=== PATIENT | female | born 2000 | race Native Hawaiian/Other Pacific Islander ===

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

== ENCOUNTER 2019-05-25 17:05 | Outpatient (CLI) | payer OTHER ==
[2019-05-25 18:18] LABS: Bilirubin,Urine NEG (Negative); Blood,Urine MOD (Negative); Calcium Oxalate Crystals,Urine 2+; Color,Urine Amber (Yellow)
[2019-05-25 18:26] LABS: Hematocrit 33.6 % (30.3-42.9); Hemoglobin 11.7 gm/dl (10.1-14.3); Mean Corpuscular HGB Conc 35 % (30-34); Mean Corpuscular Volume 84 fl (79-97); Platelet Count 217 K/mm3 (140-440); Red Blood Count 4.01 M/mm3 (3.65-5.03)
[2019-05-25 18:58] LABS: Alanine Aminotransferase 12 units/L (7-56); Uric Acid 5.8 mg/dL (3.5-7.6)
[2019-05-25 22:03] VITALS: BP 128/79
== END 2019-05-25 22:40 | disposition home or self-care (01) ==
LOC: TRG 17:05
PROVIDERS: ATTEND Obstetrics & Gynecology
DX: O47.1 False labor at or after 37 completed weeks of gestation (principal); Z3A.38 38 weeks gestation of pregnancy
CPT/HCPCS: 36415; 81001; 82565; 83615; 84450; 84460; 84550; 85027; 87086

== ENCOUNTER 2019-05-28 18:46 | Observation (INO) | payer OTHER ==
[2019-05-28] MEDS ORDERED: SUBLIMAZE IV PRN (20:53)
[2019-05-28] MEDS ORDERED: AMPICILLIN/NS 2 GM/100 ML 2 GM/100 ML BAG IV ONE (20:53)
[2019-05-28] MEDS ORDERED: STADOL IV PRN (20:53)
[2019-05-28] MEDS ORDERED: MINERAL OIL PO PRN (20:53)
[2019-05-28] MEDS ORDERED: BRETHINE SUB-Q PRN (20:53)
[2019-05-28] MEDS ORDERED: BRETHINE IVP PRN (20:53)
[2019-05-28] MEDS ORDERED: XYLOCAINE 2% INFILTRATI ONE (20:53)
[2019-05-28] MEDS ORDERED: ZOFRAN IV PRN (20:53)
[2019-05-28] MEDS ORDERED: PITOCin/NS 20 UNIT/1000ML DRIP 20 UNITS/1,000 ML BAG IV SCH (21:00)
[2019-05-28] MEDS ORDERED: PITOCin/NS 30 UNIT/500ML 30 UNITS/500 ML BAG IV SCH ×2 (21:00)
[2019-05-28] MEDS ORDERED: LACTATED RINGERS 1,000 ML IV SCH (21:00)
[2019-05-28 22:55] LABS: Alanine Aminotransferase 10 units/L (7-56)
[2019-05-28 23:10] LABS: Hematocrit 33.8 % (30.3-42.9); Hemoglobin 11.6 gm/dl (10.1-14.3); Mean Corpuscular HGB Conc 34 % (30-34); Mean Corpuscular Volume 84 fl (79-97); Platelet Count 220 K/mm3 (140-440); Red Blood Count 4.02 M/mm3 (3.65-5.03); Red Cell Distribution Width 14.7 % (13.2-15.2)
[2019-05-28 23:25] LABS: Bilirubin,Urine NEG (Negative); Blood,Urine NEG (Negative); Color,Urine Yellow (Yellow); Protein,Urine <15 mg/dL mg/dL (Negative); Urobilinogen,Urine < 2.0 mg/dL (<2.0)
[2019-05-29 02:15] LABS: Uric Acid 5.6 mg/dL (3.5-7.6)
[2019-05-29] MEDS ORDERED: XYLOCAINE 2% INFILTRATI ONE (07:11)
[2019-05-29] MEDS ORDERED: METHERGINE IM ONE ×2 (07:13→11:29)
--- NOTE | 2019-05-29 07:37 | History and Physical Report ---
History of Present Illness Date of examination: 05/29/19 Date of admission: 05/28/19 21:14 Chief complaint: SROM 3 days ago History of present illness: Pt is a 18yo HF EDC 06/01/19; EGA 39 4/7 weeks presented to L&D complaining of SROM 3 days ago, now with irregular contractions. She received care at [facility] since 6 weeks and course has been unremarkable. records are available and GBS is Negative. Past History Past Medical History: no pertinent history Past Surgical History: no surgical history Family/Genetic History: diabetes, heart disease Social history: no significant social history, single - Obstetrical History Expected Date of Delivery: 06/01/19 Actual Gestation: 39 Week(s) 4 Day(s) : 1 Medications and Allergies Allergies Allergy/AdvReac Type Severity Reaction Status Date / Time No Known Allergies Allergy Verified 12/28/18 01:52 Active Meds: Active Medications Butorphanol Tartrate (Stadol) 2 mg IV Q2H PRN PRN Reason: Pain , Severe (7-10) Last Admin: 05/29/19 03:53 Dose: 2 mg Documented by: Ephedrine Sulfate (Ephedrine Sulfate) 10 mg IV Q2M PRN PRN Reason: Hypotension Fentanyl (Sublimaze) 100 mcg IV Q2H PRN PRN Reason: Labor Pain Oxytocin/Sodium Chloride (Pitocin/Ns 20 Unit/1000ml Drip) 20 units in 1,000 mls @ 125 mls/hr IV DIRECT ABBY Oxytocin/Sodium Chloride (Pitocin/Ns 30 Unit/500ml) 30 units in 500 mls @ 1 mls/hr IV TITR ABBY; Protocol Last Admin: 05/28/19 22:00 Dose: 1 milliunits/min, 1 mls/hr Documented by: Oxytocin/Sodium Chloride (Pitocin/Ns 30 Unit/500ml) 30 units in 500 mls @ 2 mls/hr IV TITR ABBY; Protocol Lactated Ringer's (Lactated Ringers) 1,000 mls @ 125 mls/hr IV DIRECT ABBY Last Admin: 05/28/19 22:00 Dose: 125 mls/hr Documented by: Mineral Oil (Mineral Oil) 30 ml PO QHS PRN PRN Reason: Constipation Ondansetron HCl (Zofran) 4 mg IV Q8H PRN PRN Reason: Nausea And Vomiting Terbutaline Sulfate (Brethine) 0.25 mg SUB-Q ONCE PRN PRN Reason: Hyperstimulation/Hypertonicity Terbutaline Sulfate (Brethine) 0.25 mg IVP ONCE PRN PRN Reason: Hyperstimulation/Hypertonicity Review of Systems All systems: negative - Vital Signs Vital signs: Vital Signs Pulse BP 73 137/97 05/28/19 19:33 05/28/19 19:33 Temp Pulse Resp BP Pulse Ox 110 H 18 142/94 05/29/19 07:23 05/29/19 03:53 05/29/19 07:23 - Physical Exam Breasts: Positive: deferred Cardiovascular: Regular rate Lungs: Positive: Clear to auscultation Abdomen: Positive: normal appearance Genitourinary (Female): Positive: normal external genitalia Uterus: Positive: enlarged Extremities: Positive: normal - Obstetrical FHR: category 1 Uterine Contraction Monitor Mode: External Cervical Dilatation: 10 Cervical Effacement Percentage: 100 station: +2 Uterine Contraction Pattern: Regular Uterine Tone Measurement Phase: Contraction Uterine Contraction Intensity: Strong/Firm Results Result Diagrams: 05/28/19 20:30 05/28/19 21:57 Abnormal lab results 05/28/19 Range/Units 21:57 Creatinine 0.5 L (0.7-1.2) mg/dL All other labs normal. Assessment and Plan - Patient Problems (1) 39 weeks gestation of Onset Date: 05/29/19 Current Visit: Yes Status: Acute Plan to address problem: A: IUP @ 39 4/7 weeks in labor Prolonged ROM P: Admit to L&D for expectant vaginal delivery IV Ampicillin
--- NOTE | 2019-05-29 07:45 | Procedure Note ---
OB Delivery Note - Delivery Date of Delivery: 05/29/19 Surgeon: DAMI SANDOVAL Estimated blood loss: 300cc - Vaginal Delivery presentation: vertex Delivery position: OA Intrapartum events: PROM->1hr before delivery, meconium Delivery induction: none Delivery augmentation: rupture of membranes Delivery monitor: external FHT, external uterine Route of delivery: Delivery placenta: spontaneous Delivery cord: 3 umbilical vessels Episiotomy: none Delivery laceration: 1st degree (perineal lacerations) Delivery repair: vicryl Anesthesia: local Delivery comments: delivered OA and placed on Mom's chest for [id number] bonding and delayed cord clamping, cut by Dad - Infant A at 1 minute: 8 at 5 minutes: 9 Gender: Female (3128gms)
[2019-05-29] MEDS ORDERED: TUCKS PAD TP PRN (07:47)
[2019-05-29] MEDS ORDERED: PHENERGAN PO PRN (07:47)
[2019-05-29] MEDS ORDERED: LANSINOH TP PRN (07:47)
[2019-05-29] MEDS ORDERED: TYLENOL PO PRN (07:47)
[2019-05-29] MEDS ORDERED: NORCO 5/325 PO PRN (07:47)
[2019-05-29] MEDS ORDERED: ZOFRAN IV PRN (07:47)
[2019-05-29] MEDS ORDERED: BENADRYL PO PRN (07:47)
[2019-05-29] MEDS ORDERED: PHENERGAN PR PRN (07:47)
[2019-05-29] MEDS ORDERED: PITOCin/NS 20 UNIT/1000ML DRIP 20 UNITS/1,000 ML BAG IV SCH (08:00)
[2019-05-29] MEDS ORDERED: SODIUM CHLORIDE FLUSH SYRINGE 10 ML IV NR (08:00)
[2019-05-29] MEDS: IBUPROFEN PO SCH ×2 (09:20→20:25)
[2019-05-29] MEDS ORDERED: DULCOLAX PR PRN (10:00)
[2019-05-29 19:03] LABS: Hematocrit 27.6 % (30.3-42.9); Hemoglobin 9.5 gm/dl (10.1-14.3)
[2019-05-29] MEDS ORDERED: MILK OF MAGNESIA PO PRN (22:00)
[2019-05-29] MEDS: FEOSOL PO SCH (22:31)
[2019-05-29] MEDS: COLACE PO SCH (22:31)
[2019-05-30] MEDS: IBUPROFEN PO SCH ×5 (02:44→23:11)
[2019-05-30] MEDS ORDERED: BOOSTRIX IM ONE ×2 (06:00→12:15)
[2019-05-30] MEDS: PRENATAL VITAMIN PO SCH (09:50)
[2019-05-30] MEDS: FEOSOL PO SCH ×2 (09:50→23:10)
[2019-05-30] MEDS: COLACE PO SCH ×2 (09:50→23:10)
[2019-05-30] MEDS ORDERED: M-M-R II VACCINE SUB-Q ONE (10:00)
--- NOTE | 2019-05-30 12:34 | Progress Note ---
Assessment and Plan - Patient Problems (1) (normal spontaneous vaginal delivery) Current Visit: Yes Status: Acute Plan to address problem: Continue routine PP orders Anticipate d/c home tomorrow (2) Anemia Current Visit: Yes Status: Acute Qualifiers: Anemia type: other cause Other causes of anemia: acute posthemorrhagic Qualified Code(s): D62 - Acute posthemorrhagic anemia Plan to address problem: Asymptomatic Continue daily oral iron supplementation as ordered Subjective - Subjective Date of service: 05/30/19 Principal diagnosis: Interval history: See admission H & P and OB delivery summary Patient reports: appetite normal, voiding normally, pain well controlled, flatus, ambulating normally, no bowel movement [place]: doing well, bottle feeding (and ) Objective - Vital Signs Latest vital signs: Vital Signs Temp Pulse Resp BP Pulse Ox 05/30/19 09:41 98.2 F 89 16 135/86 97 05/30/19 00:37 98.1 F 81 20 133/82 93 Intake and Output 05/29/19 05/30/19 05/30/19 23:59 07:59 15:59 Intake Total 240 360 Output Total 650 250 Balance -410 110 Intake: Oral 240 120 Intake, Free Water 240 Output: Urine 650 250 Void 650 250 Other: Total, Intake Amount 240 120 Total, Output Amount 450 250 # Voids Void 1 1 - Exam Breasts: Present: deferred Cardiovascular: Present: Regular rate Lungs: Present: Normal air movement Abdomen: Present: soft, normal bowel sounds Uterus: Present: firm, fundal height below umbilicus (U-2) Extremities: Present: normal Deep Tendon Reflex Grade: Normal +2 Incision: Present: other (1st degree laceration, healing as expected) - Labs Labs: Abnormal lab results 05/29/19 Range/Units 18:00 Hgb 9.5 L (10.1-14.3) gm/dl Hct 27.6 L D (30.3-42.9) %
--- NOTE | 2019-05-30 12:39 | Discharge Summary ---
Providers - Providers Date of Admission: 05/28/19 21:14 Date of discharge: 05/31/19 (1200) Attending physician: SARAH ALMARAZ MD Primary care physician: SARAH ALMARAZ MD Hospitalization Reason for admission: active labor Delivery: Episiotomy: none Laceration: 1st degree (healing as expected) complications: none Discharge diagnosis: IUP at term delivered [place] baby: female Condition at discharge: Stable Disposition: [facility]-01 TO HOME OR SELFCARE - Discharge Diagnoses (1) (normal spontaneous vaginal delivery) Status: Acute (2) Anemia Status: Acute Qualifiers: Anemia type: other cause Other causes of anemia: acute posthemorrhagic Qualified Code(s): D62 - Acute posthemorrhagic anemia Plan - Provider Discharge Summary Activity: routine, no sex for 6 weeks, no heavy lifting 4 weeks, no strenuous exercise Diet: other (Increase iron rich foods) Instructions: routine Additional instructions: [] Smoking cessation referral if applicable(refer to patient education folder for contact #) [] Refer to [facility]'s [facility] Booklet Call your doctor immediately for: * Fever > 100.5 * Heavy vaginal bleeding ( >1 pad per hour) * Severe persistent headache * Shortness of breath * Reddened, hot, painful area to leg or breast * Drainage or odor from incision. * Keep incision clean and dry at all times and follow doctor's instructions regarding bathing/showering - Follow up plan Follow up: SARAH ALMARAZ MD [Primary Care Provider] - 6 Weeks
[2019-05-30] MEDS: NORMODYNE PO SCH ×2 (18:50→22:44)
[2019-05-30 20:38] LABS: Hematocrit 24.4 % (30.3-42.9); Hemoglobin 8.3 gm/dl (10.1-14.3); Mean Corpuscular HGB Conc 34 % (30-34); Mean Corpuscular Volume 85 fl (79-97); Platelet Count 180 K/mm3 (140-440); Red Blood Count 2.87 M/mm3 (3.65-5.03); Red Cell Distribution Width 14.4 % (13.2-15.2)
[2019-05-30 21:00] LABS: Alanine Aminotransferase 11 units/L (7-56); Uric Acid 5.4 mg/dL (3.5-7.6)
[2019-05-31] MEDS: IBUPROFEN PO SCH ×2 (05:24→12:27)
[2019-05-31] MEDS: COLACE PO SCH (09:16)
[2019-05-31] MEDS: NORMODYNE PO SCH (09:17)
[2019-05-31] MEDS: FEOSOL PO SCH (09:17)
[2019-05-31] MEDS: PRENATAL VITAMIN PO SCH (09:17)
[2019-05-31] MEDS ORDERED: NORMODYNE ONE (10:48)
[2019-05-31] MEDS ORDERED: NORMODYNE PO ONE (11:00)
[2019-05-31 12:14] VITALS: BP 125/78
[2019-05-31] MEDS ORDERED: NORMODYNE PO SCH (22:00)
== END 2019-05-31 13:30 | disposition home or self-care (01) ==
LOC: TRG 18:46 → LD 21:14 → OB 05-29 10:34
PROVIDERS: ADMIT Obstetrics & Gynecology; ATTEND Obstetrics & Gynecology
DX: O80 Encounter for full-term uncomplicated delivery (principal); D62 Acute posthemorrhagic anemia; Z37.0 Single live birth
CPT/HCPCS: 36415; 81001; 82565; 83615; 84450; 84460; 84550; 85014; 85018; 85027; 86592; 86850; 86900; 86901; 88307; 90471; 90715; 96361; 96365; 96375; G0378; J0290; J0595; J2210; J2590; J3010; J7120

== ENCOUNTER 2021-11-01 17:08 | Inpatient (IN) | payer SELFPAY ==
[2021-11-01] MEDS ORDERED: LACTATED RINGERS 1,000 ML IV ONE (21:16)
[2021-11-01] MEDS ORDERED: ACETAMINOPHEN 500 MG TAB PO ONE (22:44)
[2021-11-02] MEDS ORDERED: LIDOCAINE (2%) 20 MG/1 ML VIAL 20 ML MDV INFILTRATI ONE (02:25)
[2021-11-02] MEDS ORDERED: ACETAMINOPHEN 325 MG TAB PO PRN (02:25)
[2021-11-02] MEDS ORDERED: ePHEDrine SULFATE 50 MG/1 ML INJ IV PRN (02:25)
[2021-11-02] MEDS ORDERED: OXYTOCIN 10 UNIT/1 ML INJ IM PRN (02:25)
[2021-11-02] MEDS ORDERED: METHYLERGONOVINE MALEATE 0.2 MG/ML VIAL IM PRN (02:25)
[2021-11-02] MEDS ORDERED: miSOPROStol 200 MCG TAB PR PRN (02:25)
[2021-11-02] MEDS ORDERED: BUTORPHANOL 2 MG/1 ML INJ IV PRN (02:25)
[2021-11-02] MEDS ORDERED: MINERAL OIL 30 ML ORAL LIQD PO PRN (02:25)
[2021-11-02] MEDS ORDERED: LOPERAMIDE 2 MG CAP PO PRN (02:25)
[2021-11-02] MEDS ORDERED: TERBUTALINE 1 MG/1 ML INJ SUB-Q PRN (02:25)
[2021-11-02] MEDS ORDERED: CARBOPROST TROMETHAMINE 250 MCG/1 ML INJ IM PRN (02:25)
[2021-11-02] MEDS ORDERED: OXYTOCIN DRIP 30 UNITS/500 ML BAG IV SCH ×3 (03:00→19:00)
[2021-11-02] MEDS ORDERED: miSOPROStol 25 MCG TAB PO ONE (03:00)
[2021-11-02 03:03] LABS: Hematocrit 34.2 % (30.3-42.9); Hemoglobin 11.6 gm/dl (10.1-14.3); Mean Corpuscular HGB Conc 34 % (30-34); Mean Corpuscular Volume 84 fl (79-97); Platelet Count 144 K/mm3 (140-440); Red Blood Count 4.06 M/mm3 (3.65-5.03); Red Cell Distribution Width 13.8 % (13.2-15.2)
[2021-11-02] MEDS: LACTATED RINGERS 1,000 ML IV SCH ×4 (03:36→21:11)
--- NOTE | 2021-11-02 03:36 | Ultrasound Report ---
ULTRASOUND OBSTETRIC LIMITED INDICATION / CLINICAL INFORMATION: soraida efw. Clinical Gestational Age (GA) in weeks, days: 37 weeks 4 days TECHNIQUE: Transabdominal. COMPARISON: None available. FINDINGS: NUMBER: Single PRESENTATION: cephalic AMNIOTIC FLUID VOLUME: Low AMNIOTIC FLUID INDEX (SORAIDA) in cm (if measured): 1.6 cm MEASUREMENTS: - Biparietal Diameter = 8.88 cm = 35 weeks, 6 days - Head Circumference = 30.25 cm = 33 weeks, 4 days - Abdominal Circumference = 31.9 cm = 35 weeks, 6 days - Femur Length = 6.69 cm = 34 weeks, 3 days - Estimated Weight (in grams, if calculated): 2626 g - Heart Rate (beats per minute): 151 ADDITIONAL FINDINGS: None. PERCENTILE ESTIMATED WEIGHT (if calculated): 10% AVERAGE ULTRASOUND AGE (AUA) in weeks, days = 35 weeks 0 days IMPRESSION: 1. Single intrauterine with AUA of 35 weeks, 0 days 2. Oligohydramnios with SORAIDA of 1.6 cm. ULTRASOUND BIOPHYSICAL PROFILE INDICATION / CLINICAL INFORMATION: soraida efw. Clinical Gestational Age (GA) in weeks, days: 37 weeks 4 days TECHNIQUE: Transabdominal. COMPARISON: None available. FINDINGS: BREATHING MOVEMENT = 2 GROSS BODY MOVEMENT = 2 TONE = 2 QUALITATIVE AMNIOTIC FLUID VOLUME = 0 TOTAL BIOPHYSICAL SCORE = 6/8 HEART RATE (beats per minute): 151 AMNIOTIC FLUID INDEX (cm) = 1.6 (normal = 7-24 cm) PRESENTATION: Cephalic. ADDITIONAL FINDINGS: None. IMPRESSION: 1. Biophysical Score = 6/8 2. Oligohydramnios with SORAIDA of 1.6 cm Signer Name: Mireya Ledbetter MD Signed: 11/02/2021 3:31 AM Workstation Name: [id number]
[2021-11-02] MEDS: ONDANSETRON 4 MG/2 ML INJ IV PRN ×2 (03:57→14:40)
--- NOTE | 2021-11-02 07:49 | History and Physical Report ---
History of Present Illness Date of examination: 11/01/21 Date of admission: 11/02/21 02:26 History of present illness: 21 y/o G at 37-4/7 weeks presents to OBT reporting LOF. ROM PLus was (- ). No VB. Irregular CTX. Good FM. In OBT, NST was non-reactive. BPP performed. OB US revealed IUGR and oligohydramnios. The patient is admitted for IOL. Past History Past Medical History: no pertinent history Past Surgical History: no surgical history Family/Genetic History: none Social history: no significant social history - Obstetrical History Expected Date of Delivery: 11/19/21 Actual Gestation: 37 Week(s) 4 Day(s) : 4 Para: 1 Spontaneous Abortions: 2 Medications and Allergies Allergies Allergy/AdvReac Type Severity Reaction Status Date / Time No Known Allergies Allergy Verified 12/28/18 01:52 Home Medications Medication Instructions Recorded Confirmed Last Taken Type Vit-Fe Fumar-FA [ 1 tab PO QDAY 05/30/19 05/30/19 05/28/19 History Vitamin] 1 tab Ferrous Sulfate [Feosol 325 MG tab] 325 mg PO BID #60 tablet 05/31/19 Unknown Rx labetaloL [Labetalol 100mg TAB] 100 mg PO BID #60 tablet 05/31/19 Unknown Rx Active Meds: Active Medications Acetaminophen (Acetaminophen 325 Mg Tab) 650 mg PO Q4H PRN PRN Reason: Pain, Mild (1-3) Butorphanol Tartrate (Butorphanol 2 Mg/1 Ml Inj) 1 mg IV Q2H PRN PRN Reason: Pain, Moderate(4-6) LABOR PAIN Carboprost Tromethamine (Carboprost Tromethamine 250 Mcg/1 Ml Inj) 250 mcg IM ONCE PRN PRN Reason: Uterine Bleeding Ephedrine Sulfate (Ephedrine Sulfate 50 Mg/1 Ml Inj) 10 mg IV Q2M PRN PRN Reason: Hypotension Fentanyl (Fentanyl 100 Mcg/2 Ml Inj) 100 mcg IV Q2H PRN PRN Reason: Pain,Severe (7-10) LABOR PAIN Oxytocin/Sodium Chloride (Pitocin/Ns 30 Unit/500ml) 30 units in 500 mls @ 2 mls/hr IV TITR ABBY; Protocol Lactated Ringer's (Lactated Ringers) 1,000 mls @ 125 mls/hr IV DIRECT ABBY Last Admin: 11/02/21 03:36 Dose: 125 mls/hr Oxytocin/Sodium Chloride (Pitocin/Ns 30 Unit/500ml) 30 units in 500 mls @ 40 ml s/hr IV TITR ABBY; Protocol Loperamide HCl (Loperamide 2 Mg Cap) 2 mg PO ONCE PRN PRN Reason: give with Hemabate Methylergonovine Maleate (Methylergonovine Maleate 0.2 Mg/Ml Vial) 0.2 mg IM ONCE PRN PRN Reason: Uterine Bleeding Mineral Oil (Mineral Oil 30 Ml Oral Liqd) 30 ml PO QHS PRN PRN Reason: Constipation Misoprostol (Misoprostol 200 Mcg Tab) 800 mcg TN ONCE PRN PRN Reason: Uterine Bleeding Ondansetron HCl (Ondansetron 4 Mg/2 Ml Inj) 4 mg IV Q4H PRN PRN Reason: Nausea And Vomiting Last Admin: 11/02/21 03:57 Dose: 4 mg Oxytocin (Oxytocin 10 Unit/1 Ml Inj) 10 unit IM ONCE PRN PRN Reason: Uterine Bleeding Terbutaline Sulfate (Terbutaline 1 Mg/1 Ml Inj) 0.25 mg SUB-Q ONCE PRN PRN Reason: Hyperstimulation/Hypertonicity Review of Systems All systems: negative - Vital Signs Vital signs: Vital Signs Pulse Pulse Ox 119 H 98 11/01/21 18:06 11/01/21 18:06 Temp Pulse Resp BP Pulse Ox 99.7 F H 99 H 18 127/77 95 11/02/21 04:00 11/02/21 07:46 11/01/21 18:08 11/02/21 04:01 11/02/21 07:46 - Physical Exam Breasts: Positive: normal Cardiovascular: Regular rate Lungs: Positive: Normal air movement Abdomen: Positive: normal appearance Genitourinary (Female): Positive: normal external genitalia Vulva: both: normal Vagina: Positive: normal moisture Uterus: Positive: enlarged Adnexa: both: normal Anus/Rectum: Positive: normal perianal skin Extremities: Positive: normal Deep Tendon Reflex Grade: Normal +2 - Obstetrical FHR: category 1 Cervical Dilatation: 1.5 Cervical Effacement Percentage: 50 station: -3 Uterine Contraction Pattern: Irregular Uterine Tone Measurement Phase: Resting Results Result Diagrams: 11/02/21 02:45 All other labs normal. Ultrasound: report reviewed (SORAIDA= 1.6 cm. EFW= 2626 g (10th %-ile)) Assessment and Plan IMP: - 37 weeks - Oligohydramnios - IUGR PLAN: - GBS (-). - Rx Cytotec and intracervical balloon for ripening.
[2021-11-02] MEDS ORDERED: miSOPROStol 25 MCG TAB PO SCH (08:00)
[2021-11-02] MEDS: fentaNYL 100 MCG/2 ML INJ IV PRN ×3 (09:13→12:09)
[2021-11-02] MEDS ORDERED: ACETAMINOPHEN 500 MG TAB PO ONE (12:14)
[2021-11-02] MEDS ORDERED: GENTAMICIN 100 MG in SODIUM CHLORIDE 0.9% 100 ML IV SCH (12:30)
--- NOTE | 2021-11-02 12:42 | Event Note ---
Date: 11/02/21 Patient states her water probably broke yesterday at noon. FHR 160-165 with minimal to moderate variability and accelerations. SVE 5/60/-2/cephalic. Temperature with low grade elevation. Tylenol po ordered. IV ampicillin and gentamicin ordered. Start Pitocin for augmentation of labor. Patient positioned in squatting position. Goal is for antibiotics, recheck temperature, continuous EFM, Pitocin to expedite delivery.
[2021-11-02] MEDS: AMPICILLIN/NS 2 GM/100 ML 2 GM/100 ML BAG IV SCH ×2 (12:55→23:44)
[2021-11-02] MEDS ORDERED: fentaNYL-BUPIV 2 MCG/ML-0.125% 200 MCG/100 ML BAG EPIDURAL ONE (14:15)
[2021-11-02] MEDS: GENTAMICIN/NS 100 MG/100 ML 100 MG/100 ML BAG IV SCH ×2 (14:39→21:52)
--- NOTE | 2021-11-02 18:13 | Event Note ---
Date: 11/02/21 Bloody fluid noted on chux pad. Contractions every 3-4 minutes, contractions palpate moderate. Uterus palpates soft between contractions. Reassuring FHR tracing. SVE 5/70/-2. No active bleeding seen on vaginal exam. Patient denies pain between contractions. Coronavirus positive; patient denies cough or shortness of breath. Pitocin discontinued; notified Dr. Mckeon of blood noted on chux pad and exam and FHR tracing. Dr. Mckeon states it is OK to proceed with IOL and attempt vaginal . Discussed plan of care with patient and her S.O. and nurse.
[2021-11-02] MEDS ORDERED: BICITRA ORAL LIQD 30ML PO ONE (18:31)
[2021-11-02] MEDS ORDERED: METOCLOPRAMIDE 10 MG/2 ML INJ IV ONE (18:31)
[2021-11-02] MEDS ORDERED: FAMOTIDINE 20 MG/2 ML INJ IV ONE (18:31)
--- NOTE | 2021-11-02 18:36 | Event Note ---
Patient now complains of abdominal pain and tenderness. Has pain even between contractions. Abdomen tender to palpation. Bright red vaginal bleeding noted on onofre pad. tachycardia noted. Temp 98.9. Pitocin is off. orders put in. Notified Dr. Mckeon and she states she is coming to perform section. OR team and patient's nurse notified. Discussed plan of care with patient and S.O. Oxygen applied per face mask at 10 LPM.
[2021-11-02] MEDS ORDERED: LACTATED RINGERS 1,000 ML IV SCH (18:45)
--- NOTE | 2021-11-02 18:45 | Event Note ---
Date: 11/02/21 NRFHT with moderate vaginal bleeding and fundal tenderness plan for operative delivery informed consent Dilshad Mckeon MD
[2021-11-02] MEDS ORDERED: ceFAZolin/Water 2 GM/20 ML 2 GM/20 ML SYRINGE IV NR (19:00)
--- NOTE | 2021-11-02 19:24 | Anesthesia Consultation ---
Anesthesia Consult and Med Hx Date of service: 11/02/21 - Pre-Operative Health Status ASA Pre-Surgery Classification: ASA2 Proposed Anesthetic Plan: Epidural - Pulmonary Hx Smoking: No Hx Asthma: No Hx Respiratory Symptoms: No SOB: No COPD: No Home Oxygen Therapy: No Hx Pneumonia: No Hx Sleep Apnea: No - Cardiovascular System Hx Hypertension: No Hx Coronary Artery Disease: No Hx Heart Attack/AMI: No Hx Angina: No Hx Percutaneous Transluminal Coronary Angioplasty (PTCA): No Hx Cardia Arrhythmia: No Hx Pacemaker: No Hx Internal Defibrillator: No Hx Valvular Heart Disease: No Hx Heart Murmur: No Hx Peripheral Vascular Disease: No - Central Nervous System Hx Neuromuscular Disorder: No Hx Seizures: No CVA: No Hx Back Pain: No Hx Psychiatric Problems: No - Gastrointestinal Hx Ulcer: No Hx Gastroesophageal Reflux Disease: No - Endocrine Hx Renal Disease: No Hx End Stage Renal Disease: No Hx Cirrhosis: No Hx Liver Disease: No Hx Insulin Dependent Diabetes: No Hx Non-Insulin Dependent Diabetes: No Hx Thyroid Disease: No Hx Hypothyroidism: No Hx Hyperthyroidism: No - Hematic Hx Anemia: No Hx Sickle Cell Disease: No - Other Systems Hx Alcohol Use: No Hx Substance Use: No Hx Cancer: No Hx Obesity: Yes
--- NOTE | 2021-11-02 19:24 | Anesthesia Day of Surgery ---
Anesthesia Day of Surgery - Day of Surgery Patient Examined: Yes Patient H&P Reviewed: Yes Patient is NPO: Yes Beta Blockers: No Cardiac Clearance: No Pulmonary Clearance: No Shaji's Test: Negative
--- NOTE | 2021-11-02 19:43 | Procedure Note ---
OB Delivery Note - Delivery Date of Delivery: 11/02/21
[2021-11-02] MEDS ORDERED: ONDANSETRON 4 MG/2 ML INJ ONE (19:48)
--- NOTE | 2021-11-02 21:41 | Event Note ---
Date: 11/02/21 FHT 170s moderate variability +ve tachycardia second to maternal COVID infection with superimposed chorioamnionitis cervix /-2 no vaginal bleeding for over 2 hours plan for oxytocin aol with plan for Dilshad Mckeon MD
[2021-11-03] MEDS: LACTATED RINGERS 1,000 ML IV SCH ×4 (00:53→16:54)
[2021-11-03] MEDS: fentaNYL 100 MCG/2 ML INJ IV PRN ×3 (01:34→05:37)
--- NOTE | 2021-11-03 03:56 | Event Note ---
Date: 11/03/21 FHT Category 1 Goldonna Q2 cervix 5cm continue oxytocin for aol overall FHT reassuring Linda Hand MD
[2021-11-03] MEDS: AMPICILLIN/NS 2 GM/100 ML 2 GM/100 ML BAG IV SCH ×4 (05:36→23:13)
[2021-11-03] MEDS: GENTAMICIN/NS 100 MG/100 ML 100 MG/100 ML BAG IV SCH ×2 (06:40→16:54)
[2021-11-03] MEDS ORDERED: fentaNYL-BUPIV 2 MCG/ML-0.125% 200 MCG/100 ML BAG EPIDURAL SCH (08:00)
[2021-11-03] MEDS ORDERED: NALOXONE 2 MG/2 ML INJ IV PRN (08:00)
[2021-11-03] MEDS ORDERED: ePHEDrine SULFATE 50 MG/1 ML INJ IV PRN (08:00)
--- NOTE | 2021-11-03 09:58 | Progress Note ---
Labor Epidural - Labor Epidural Start Time: 07:55 Stop Time: 08:15 Performed by:: JEANINE DEJESUS Procedure: Patient is requesting a laboring epidural for laboring pain. Patient IDed, H&P reviewed, all questions and concerns were answered, and consent was signed. Timeout was performed at bedside. Patient in sitting position. Sterile prep and drape was performed. [3] ml of 1% lidocaine skin wheal at L[3]- L [4]. 18- gauge Tuohy epidural needle was advanced to loss of resistance with saline technique. Negative CSF negative blood. Epidural catheter advanced to [12] centimeters. [NEGATIVE] Aspiration [NEGATIVE] test dose. Sterile dressing applied. Patient tolerated procedure.
[2021-11-03] MEDS ORDERED: ONDANSETRON 4 MG/2 ML INJ IV PRN (12:08)
[2021-11-03] MEDS ORDERED: LANOLIN/ZINC/DIMETHICONE (LANSINOH) 7 GM TP PRN (12:08)
[2021-11-03] MEDS ORDERED: diphenhydrAMINE 25 MG CAP PO PRN (12:08)
[2021-11-03] MEDS ORDERED: PROMETHAZINE 25 MG RECT SUPP PR PRN (12:08)
[2021-11-03] MEDS ORDERED: oxyCODONE /ACETAMINOPHEN 5-325MG TAB PO PRN (12:08)
[2021-11-03] MEDS ORDERED: PROMETHAZINE 25 MG TAB PO PRN (12:08)
[2021-11-03] MEDS ORDERED: MAGNESIUM HYDROXIDE (MOM) ORAL LIQD UDC PO PRN (12:08)
[2021-11-03] MEDS ORDERED: KETOROLAC 30 MG/1 ML INJ IV PRN (12:08)
[2021-11-03] MEDS ORDERED: WITCH HAZEL/ GLYCERIN PAD TP PRN (12:08)
--- NOTE | 2021-11-03 12:18 | Procedure Note ---
OB Delivery Note - Delivery Date of Delivery: 11/03/21 Surgeon: JAELYN ELLIOTT Estimated blood loss: other (350ml) - Vaginal Delivery position: OA Intrapartum events: uterine atony (resolved with fundal massage, oxytocin and Methergine 0.2mg IMx1 dose) Delivery monitor: external FHT, external uterine Route of delivery: Delivery placenta: spontaneous Delivery cord: 3 umbilical vessels Episiotomy: none Delivery laceration: none Delivery comments: Patient pushed to deliver a viable female over an intact perineum with weight and . Position DAFNE, no nuchal cord. Spontaneous cry at delivery. Delivery of the anterior shoulder atraumatic, remainder of delivery uncomplicated. Cord clamped cut and baby handed to waiting [facility] team. Spontaneous delivery of an intact placenta with three-vessel cord. Inspection of the perineum cervix and vagina revealed no lacerations. Mild uterine atony responded to Methergine. EBL 350ml. All sponge needle and instrument counts correct x2. Mom and baby stable to . Dilshad Elliott MD
--- NOTE | 2021-11-03 12:44 | Post Anesthesia Evaluation ---
- Post Anesthesia Evaluation Patient Participated: Yes Airway Patent: Yes Stable Respiratory Function: Yes Nausea/Vomiting: No Temp > 96.8F: Yes Pain Manageable: Yes Adequeate Hydration: Yes Anesthesia Complications: No Block Receding Appropriately: Yes Patient on Ventilator: No
[2021-11-03] MEDS: IBUPROFEN 600 MG TAB PO SCH ×2 (15:00→21:00)
[2021-11-03] MEDS: ACETAMINOPHEN 325 MG TAB PO PRN (16:00)
[2021-11-04 01:04] LABS: Hematocrit 32.3 % (30.3-42.9); Hemoglobin 10.6 gm/dl (10.1-14.3)
[2021-11-04] MEDS: IBUPROFEN 600 MG TAB PO SCH ×3 (01:04→22:01)
[2021-11-04] MEDS: GENTAMICIN/NS 100 MG/100 ML 100 MG/100 ML BAG IV SCH ×3 (01:10→18:29)
[2021-11-04] MEDS: AMPICILLIN/NS 2 GM/100 ML 2 GM/100 ML BAG IV SCH ×3 (05:41→21:39)
[2021-11-04] MEDS: LACTATED RINGERS 1,000 ML IV SCH (05:44)
[2021-11-04] MEDS ORDERED: TETANUS,DIPH,PERTUSS(ACELL) VACCINE 0.5 ML SYRINGE IM ONE (06:36)
[2021-11-04] MEDS: HYDROcodone/ACETAMINOPHEN 5-325 MG TAB PO PRN (06:49)
--- NOTE | 2021-11-04 10:58 | Progress Note ---
Assessment and Plan A: day 1 S/P . Anemia. Coronavirus positive (asymptomatic). P: Oral iron supplementation. Continue coronavirus precautions. Anticipate discharge home tomorrow if patient continues to do well. Subjective - Subjective Date of service: 11/04/21 Principal diagnosis: day 1 S/P Patient reports: appetite normal, voiding normally, pain well controlled, flatus, ambulating normally, no dizzy ambulation, no nauseated : doing well Objective - Vital Signs Latest vital signs: Vital Signs Temp Pulse Resp BP BP Pulse Ox Pulse Ox 11/04/21 08:30 97 11/04/21 06:49 18 11/04/21 01:04 18 11/03/21 23:50 98.0 F 79 18 128/91 97 11/03/21 21:00 94 11/03/21 20:15 97.6 F 81 18 113/78 94 11/03/21 17:30 98.6 F 11/03/21 15:30 102 F H 89 20 121/75 95 11/03/21 14:18 102 H 97 11/03/21 14:15 98.8 F 16 95 11/03/21 14:13 90 98 11/03/21 14:08 85 97 11/03/21 14:04 77 137/72 11/03/21 14:03 81 98 11/03/21 13:58 82 96 11/03/21 13:57 91 H 90 11/03/21 13:53 96 H 96 11/03/21 13:49 82 124/59 11/03/21 13:48 92 H 96 11/03/21 13:43 86 96 11/03/21 13:38 96 H 97 11/03/21 13:36 86 94 11/03/21 13:34 96 H 130/62 11/03/21 13:33 95 H 96 11/03/21 13:28 118 H 95 11/03/21 13:23 71 98 11/03/21 13:19 78 145/79 11/03/21 13:18 85 97 11/03/21 13:13 76 96 11/03/21 13:08 76 97 11/03/21 13:04 75 118/62 11/03/21 13:03 85 95 11/03/21 13:00 92 H 93 11/03/21 12:58 77 97 11/03/21 12:54 87 94 11/03/21 12:53 81 95 11/03/21 12:49 86 122/57 11/03/21 12:48 88 95 11/03/21 12:45 93 H 94 11/03/21 12:43 87 98 11/03/21 12:38 85 96 11/03/21 12:34 116 H 122/58 11/03/21 12:33 107 H 96 11/03/21 12:31 87 94 11/03/21 12:30 99.8 F H 16 95 11/03/21 12:28 89 97 11/03/21 12:23 87 96 11/03/21 12:19 93 H 120/70 11/03/21 12:18 90 96 11/03/21 12:13 85 97 11/03/21 12:10 90 120/61 11/03/21 12:08 105 H 94 11/03/21 12:03 108 H 95 11/03/21 11:58 109 H 96 11/03/21 11:56 133 H 93 11/03/21 11:53 121 H 95 11/03/21 11:50 120 H 93 11/03/21 11:49 104 H 124/84 11/03/21 11:48 103 H 98 11/03/21 11:43 125 H 94 11/03/21 11:39 83 94 11/03/21 11:38 102 H 94 11/03/21 11:34 95 H 123/69 11/03/21 11:33 86 94 11/03/21 11:30 99 F 16 95 11/03/21 11:29 93 H 94 11/03/21 11:28 87 93 11/03/21 11:23 86 94 11/03/21 11:19 90 124/72 11/03/21 11:18 111 H 94 11/03/21 11:17 98 H 94 11/03/21 11:13 92 H 94 11/03/21 11:10 85 94 11/03/21 11:08 82 92 11/03/21 11:05 90 119/70 94 11/03/21 11:03 105 H 94 11/03/21 10:58 83 93 Intake and Output 11/03/21 11/04/21 11/04/21 23:59 07:59 15:59 Intake Total 2538.911 6262 Balance 9876.987 1405 Intake: IV 953.913 2829 AMPICILLIN/NS 2 GM/100 ML 100 100 2 gm In 100 ml @ 100 mls /hr IV Q6H [facility] Rx#: [id number] CLEOCIN 900 MG/50 mL 900 50 mg In 50 ml @ 100 mls/hr IV Q8H [facility] Rx#:[id number] GENTAMICIN/NS 100 MG/100 100 ML 100 mg In 100 ml @ 200 mls/hr IV Q8H [facility] Rx#: [id number] Lactated Ringers 1,000 ml 757.109 9789 @ 125 mls/hr IV [facility] Rx#:[id number] Oral 360 120 Other: Total, Intake Amount 120 120 # Voids Void 1 1 - Exam Cardiovascular: Present: Regular rate, No murmurs Lungs: Present: Clear to auscultation Abdomen: Present: normal appearance, soft. Absent: distention, tenderness, guarding, rigidity Uterus: Present: normal, firm, fundal height below umbilicus. Absent: bogginess, tenderness Extremities: Absent: tenderness
[2021-11-04] MEDS: PRENATAL VIT27-FE FUMARATE-FOLIC ACID VIT TAB PO SCH (11:05)
[2021-11-04] MEDS: ACETAMINOPHEN 325 MG TAB PO PRN ×2 (12:51→18:27)
[2021-11-04] MEDS: FERROUS SULFATE 325 MG TAB PO SCH (12:51)
[2021-11-04] MEDS ORDERED: ACETAMINOPHEN 325 MG TAB PO ONE (14:30)
--- NOTE | 2021-11-04 14:38 | XRay Report ---
CHEST 1 VIEW 11/04/2021 2:09 PM INDICATION / CLINICAL INFORMATION: Cough. COVID positive. COMPARISON: None available. FINDINGS: SUPPORT DEVICES: None. HEART / MEDIASTINUM: The heart size and pulmonary vasculature are normal. LUNGS / PLEURA: There are mild patchy parenchymal opacities throughout the right lung, most prominent in the upper lobe. There is probable minimal patchy parenchymal disease in the left mid to lower ana maría g. No pleural effusion. No pneumothorax. ADDITIONAL FINDINGS: No significant additional findings. IMPRESSION: Mild patchy parenchymal opacities, predominantly in the right lung, are nonspecific but l ikely inflammatory. Atypical causes of pneumonia, including viral pneumonia, should be considered. Signer Name: Lisandro Haji MD Signed: 11/04/2021 2:34 PM Workstation Name: [id number]
[2021-11-04 15:46] LABS: Bilirubin,Urine NEG (Negative); Blood,Urine MOD (Negative); Color,Urine Straw (Yellow); Mucus,Urine FEW /HPF; Protein,Urine <15 mg/dL mg/dL (Negative); Urobilinogen,Urine < 2.0 mg/dL (<2.0)
[2021-11-04 16:13] LABS: Basophils % (Auto) 0.3 % (0.0-1.8); Eosinophils % (Auto) 0.1 % (0.0-4.3); Hematocrit 30.6 % (30.3-42.9); Hemoglobin 10.3 gm/dl (10.1-14.3); Lymphocytes # (Auto) 1.1 K/mm3 (1.2-5.4); Lymphocytes % (Auto) 15.4 % (13.4-35.0); Mean Corpuscular HGB Conc 34 % (30-34); Mean Corpuscular Volume 84 fl (79-97); Monocytes # (Auto) 0.2 K/mm3 (0.0-0.8); Monocytes % (Auto) 2.3 % (0.0-7.3); Platelet Count 145 K/mm3 (140-440); Red Blood Count 3.64 M/mm3 (3.65-5.03); Red Cell Distribution Width 13.6 % (13.2-15.2)
[2021-11-04 16:39] LABS: Alanine Aminotransferase 12 units/L (7-56); Albumin 2.8 g/dL (3.9-5); Blood Urea Nitrogen 5 mg/dL (7-17); Calcium 8.1 mg/dL (8.4-10.2); Hemolysis Index 9
[2021-11-04 16:49] LABS: BUN/Creatinine Ratio 7
--- NOTE | 2021-11-04 17:13 | Event Note ---
Date: 11/04/[address] Mckeon re: patient's fever and chills, pneumonia on chest x-ray. ID consult has been ordered. Dr. Mckeon orders Decadron 10 mg IV; notified nurse. Also ordered KCl 20 MEQ due to low potassium.
[2021-11-04] MEDS ORDERED: NACL 0.45%/KCL 20 MEQ 20 MEQ/1,000 ML BAG IV SCH (18:00)
[2021-11-04] MEDS ORDERED: dexAMETHasone 20 MG/5 ML VIAL IV ONE (18:03)
[2021-11-05] MEDS: GENTAMICIN/NS 100 MG/100 ML 100 MG/100 ML BAG IV SCH ×3 (02:34→21:36)
[2021-11-05] MEDS: AMPICILLIN/NS 2 GM/100 ML 2 GM/100 ML BAG IV SCH ×3 (06:12→22:38)
[2021-11-05] MEDS: IBUPROFEN 600 MG TAB PO SCH (06:21)
[2021-11-05] MEDS ORDERED: DEXAMETHASONE 2 MG TAB PO SCH (10:00)
--- NOTE | 2021-11-05 10:58 | Progress Note ---
Assessment and Plan A: PP Day #2 +COVID (currently asymptomatic) P: Follow Routine Orders Standard Covid Isolation Precautions Awaiting ID Consult Subjective - Subjective Date of service: 11/05/21 Principal diagnosis: day 1 S/P Patient reports: appetite normal, voiding normally, pain well controlled, flatus, ambulating normally, other (States Fevers abd Chills have resolved) : doing well Objective - Vital Signs Latest vital signs: Vital Signs Temp Pulse Resp BP Pulse Ox Pulse Ox 11/05/21 08:09 97.5 F L 52 L 16 125/81 88 11/05/21 06:21 12 11/05/21 00:47 97.7 F 66 18 112/78 94 11/04/21 22:01 12 11/04/21 20:30 98 11/04/21 17:42 101.6 F H 122 H 20 125/70 91 11/04/21 16:45 103.1 F H 11/04/21 14:10 102.3 F H 11/04/21 12:35 100.8 F H Intake and Output 11/04/21 11/05/21 11/05/21 22:59 06:59 14:59 Intake Total 830 360 120 Output Total 2 Balance 828 360 120 Intake: IV 350 AMPICILLIN/NS 2 GM/100 ML 200 2 gm In 100 ml @ 100 mls /hr IV Q6H [facility] Rx#: [id number] CLEOCIN 900 MG/50 mL 900 50 mg In 50 ml @ 100 mls/hr IV Q8H [facility] Rx#:[id number] GENTAMICIN/NS 100 MG/100 100 ML 100 mg In 100 ml @ 200 mls/hr IV Q8H [facility] Rx#: [id number] Oral 120 Intake, Free Water 480 360 Output: Urine 2 Void 2 Other: Total, Intake Amount 120 Total, Output Amount 2 # Voids Void 2 1 - Exam Breasts: Present: normal Cardiovascular: Present: Regular rate Lungs: Present: Normal air movement Abdomen: Present: normal appearance, soft Uterus: Present: normal, firm, fundal height below umbilicus Extremities: Present: normal - Labs Labs: Abnormal lab results 11/04/21 11/04/21 Range/Units 15:42 15:42 RBC 3.64 L (3.65-5.03) M/mm3 Lymph # (Auto) 1.1 L (1.2-5.4) K/mm3 Seg Neutrophils % 81.9 H (40.0-70.0) % Potassium 3.0 L (3.6-5.0) mmol/L BUN 5 L (7-17) mg/dL Calcium 8.1 L (8.4-10.2) mg/dL Alkaline Phosphatase 148 H (35-129) units/L Total Protein 5.4 L (6.3-8.2) g/dL Albumin 2.8 L (3.9-5) g/dL
[2021-11-05] MEDS: FERROUS SULFATE 325 MG TAB PO SCH (10:59)
[2021-11-05] MEDS: PRENATAL VIT27-FE FUMARATE-FOLIC ACID VIT TAB PO SCH (10:59)
[2021-11-05] MEDS: ACETAMINOPHEN 325 MG TAB PO PRN (11:55)
--- NOTE | 2021-11-05 13:04 | Consultation ---
History of Present Illness - Reason for Consult Consult date: 11/05/21 fever, cough, COVID-19 Requesting physician: TONIO HE - History of Present Illness The patient is a 21-year-old female with 37 weeks was admitted to the hospital on 11/02/2021 with concerns for decreased movement. On 11/03/2021, she underwent spontaneous vaginal delivery. Patient started developing fever and chills, showed evidence of pneumonia on chest x-ray. She tested positive for COVID-19, hence infectious diseases was consulted. T-max 103.1 F yesterday. Received 1 dose of Decadron. Labs revealed WBC 7.2, creatinine 0.7, UA unremarkable for pyuria. Chest x-ray shows patchy airspace disease. Feeling better today. No fever. Denies any other complaints. Review of Systems: General: Fever + HEENT: no new visual disturbance Respiratory: Cough + Cardiovascular: No chest pain, syncope Gastrointestinal: No nausea, vomiting or diarrhea Genitourinary: No dysuria or hematuria Musculoskeletal: No new or worsening neck pain or back pain Neurologic: No headaches, seizures Hematologic: No easy bruising or bleeding Endocrine: No night sweats or acute weight loss Skin: negative for rash, jaundice Psychiatric: No suicidal or homicidal ideation Past History Social history: no significant social history Medications and Allergies Allergies Allergy/AdvReac Type Severity Reaction Status Date / Time No Known Allergies Allergy Verified 12/28/18 01:52 Home Medications Medication Instructions Recorded Confirmed Last Taken Type Vit-Fe Fumar-FA [ 1 tab PO QDAY 05/30/19 05/30/19 05/28/19 History Vitamin] 1 tab Ferrous Sulfate [Feosol 325 MG tab] 325 mg PO BID #60 tablet 05/31/19 Unknown Rx labetaloL [Labetalol 100mg TAB] 100 mg PO BID #60 tablet 05/31/19 Unknown Rx Ibuprofen [Motrin] 600 mg PO Q8H PRN #60 tablet 11/02/21 Unknown Rx oxyCODONE /ACETAMINOPHEN [Percocet 1 tab PO Q6HR PRN #20 tablet 11/02/21 Unknown Rx 5/325] Active Meds: Active Medications Acetaminophen (Acetaminophen 325 Mg Tab) 650 mg PO Q4H PRN PRN Reason: Pain MILD(1-3)/Fever >100.5/VASQUEZ Last Admin: 11/05/21 11:55 Dose: 650 mg Hydrocodone Bitart/Acetaminophen (Hydrocodone/Acetaminophen 5-325 Mg Tab) 2 each PO Q6H PRN PRN Reason: Pain, Moderate (4-6) Last Admin: 11/04/21 06:49 Dose: 2 each Bisacodyl (Bisacodyl 10 Mg Rect Supp) 10 mg MN BID PRN PRN Reason: Constipation Carboprost Tromethamine (Carboprost Tromethamine 250 Mcg/1 Ml Inj) 250 mcg IM ONCE PRN PRN Reason: Uterine Bleeding Dexamethasone (Dexamethasone 2 Mg Tab) 10 mg PO DAILY [facility] Diphenhydramine HCl (Diphenhydramine 25 Mg Cap) 25 mg PO Q6H PRN PRN Reason: Itching Ephedrine Sulfate (Ephedrine Sulfate 50 Mg/1 Ml Inj) 10 mg IV Q2M PRN PRN Reason: Hypotension Ferrous Sulfate (Ferrous Sulfate 325 Mg Tab) 325 mg PO QDAY [facility] Last Admin: 11/05/21 10:59 Dose: 325 mg Oxytocin/Sodium Chloride (Pitocin/Ns 30 Unit/500ml) 30 units in 500 mls @ 2 mls/hr IV TITR [facility]; Protocol Last Titration: 11/03/21 09:18 Dose: 14 mls/hr, 14 mls/hr Lactated Ringer's (Lactated Ringers) 1,000 mls @ 125 mls/hr IV DIRECT [facility] Last Admin: 11/04/21 05:44 Dose: 125 mls/hr Oxytocin/Sodium Chloride (Pitocin/Ns 30 Unit/500ml) 30 units in 500 mls @ 40 mls/hr IV TITR [facility]; Protocol Last Titration: 11/03/21 02:05 Dose: 12 mls/hr, 12 mls/hr Ampicillin Sodium (Ampicillin/Ns 2 Gm/100 Ml) 2 gm in 100 mls @ 100 mls/hr IV Q6H [facility]; Protocol Last Admin: 11/05/21 06:12 Dose: 100 mls/hr Gentamicin Sulfate/Sodium Chloride (Gentamicin/Ns 100 Mg/100 Ml) 100 mg in 100 mls @ 200 mls/hr IV Q8H [facility] Last Admin: 11/05/21 10:59 Dose: 200 mls/hr Oxytocin/Sodium Chloride (Pitocin/Ns 30 Unit/500ml) 30 units in 500 mls @ 0 mls/hr IV TITR [facility]; Protocol Fentanyl/Bupivacaine/Sodium Chlor (Fentanyl-Bupiv 2 Mcg/Ml-0.125%) 200 mcg in 100 mls @ 12 mls/hr EPIDURAL TITR [facility]; Protocol Last Admin: 11/03/21 08:30 Dose: 12 mls/hr Clindamycin HCl (Cleocin 900 Mg/50 Ml) 900 mg in 50 mls @ 100 mls/hr IV Q8H [facility]; Protocol Last Admin: 11/05/21 05:32 Dose: 100 mls/hr Potassium Chloride/Sodium Chloride (Ns 0.45/Kcl 20meq) 20 meq in 1,000 mls @ 75 mls/hr IV DIRECT [facility] Last Admin: 11/04/21 17:24 Dose: 75 mls/hr Ibuprofen (Ibuprofen 600 Mg Tab) 600 mg PO Q6H [facility] Last Admin: 11/05/21 06:21 Dose: 600 mg Ketorolac Tromethamine (Ketorolac 30 Mg/1 Ml Inj) 30 mg IV Q6H PRN PRN Reason: Pain, Moderate (4-6) Stop: 11/08/21 12:07 Loperamide HCl (Loperamide 2 Mg Cap) 2 mg PO ONCE PRN PRN Reason: give with Hemabate Magnesium Hydroxide (Magnesium Hydroxide (Mom) Oral Liqd Udc) 30 ml PO HS PRN PRN Reason: Constipation Mineral Oil (Mineral Oil 30 Ml Oral Liqd) 30 ml PO QHS PRN PRN Reason: Constipation Multi-Ingredient Ointment (Lanolin/Zinc/Dimethicone (Lansinoh) 7 Gm) 1 applic TP PRN PRN PRN Reason: Sore Nipples Multivitamins/Iron/Calcium ( [id number] Fumarate-Folic Acid Vit Tab) 1 each PO QDAY [facility] Last Admin: 11/05/21 10:59 Dose: 1 each Naloxone HCl (Naloxone 2 Mg/2 Ml Inj) 0.2 mg IV Q5M PRN PRN Reason: Respiratory sedation Ondansetron HCl (Ondansetron 4 Mg/2 Ml Inj) 4 mg IV Q8H PRN PRN Reason: Nausea And Vomiting Last Admin: 11/03/21 15:00 Dose: 4 mg Oxycodone/Acetaminophen (Oxycodone /Acetaminophen 5-325mg Tab) 1 tab PO Q6H PRN PRN Reason: Pain, Moderate (4-6) Promethazine HCl (Promethazine 25 Mg Rect Supp) 25 mg MN Q6H PRN PRN Reason: Nausea And Vomiting Promethazine HCl (Promethazine 25 Mg Tab) 25 mg PO Q6H PRN PRN Reason: Nausea And Vomiting Sodium Chloride (Sodium Chloride 0.9% 10 Ml Flush Syringe) 10 ml IV PRN [facility] Witch Tessa/Glycerin (Witch Tessa/ Glycerin Pad) 1 each TP PRN PRN PRN Reason: Hemorrhoid/cleansing/soothing Physical Examination - Physical Exam Narrative exam: Physical Exam: Constitutional: Alert, cooperative. No acute distress Head, Ears, Nose: Normocephalic, atraumatic. External ears, nose normal Eyes: Conjunctivae/corneas clear. No icterus. No ptosis. Neck: Supple, no meningeal signs Oral: Deferred due to COVID-19 Cardiovascular: S1, S2 + Respiratory: Good air entry, clear to auscultation bilaterally GI: Soft, non-tender; bowel sounds normal. No peritoneal signs Musculoskeletal: b/l leg swelling Skin: No rash or abscess Hem/Lymphatic: No palpable cervical or supraclavicular nodes. No lymphangitis Psych: Mood ok. Affect normal Neurological: Awake, alert, oriented. No gross abnormality - Constitutional Vitals: Vital Signs Temp Pulse Resp BP Pulse Ox 97.5 F L 52 L 16 125/81 88 11/05/21 08:09 11/05/21 08:09 11/05/21 08:09 11/05/21 08:09 11/05/21 08:09 Temperature -Last 24 Hours Temperature 97.5 F Temperature 97.7 F Temperature 101.6 F Temperature 103.1 F Temperature 102.3 F Results - Labs CBC & Chem 7: 11/04/21 15:42 11/04/21 15:42 Labs: Abnormal lab results 11/04/21 11/04/21 Range/Units 15:42 15:42 RBC 3.64 L (3.65-5.03) M/mm3 Lymph # (Auto) 1.1 L (1.2-5.4) K/mm3 Seg Neutrophils % 81.9 H (40.0-70.0) % Potassium 3.0 L (3.6-5.0) mmol/L BUN 5 L (7-17) mg/dL Calcium 8.1 L (8.4-10.2) mg/dL Alkaline Phosphatase 148 H (35-129) units/L Total Protein 5.4 L (6.3-8.2) g/dL Albumin 2.8 L (3.9-5) g/dL - Imaging and Cardiology Chest x-ray: report reviewed, image reviewed (patchy pneumonia) Assessment and Plan Cultures: SARS CoV2 PCR: Positive Syphilis IgG: Nonreactive A/P: 21-year-old female with 37 weeks was admitted to the hospital on 11/02/2021 with concerns for decreased movement. On 11/03/2021, she underwent spontaneous vaginal delivery. Patient started developing fever and chills, showed evidence of pneumonia on chest x-ray. She tested positive for COVID-19: #Bilateral pneumonia: Secondary to COVID-19. Unvaccinated. On room air. # status Recs: No therapeutics indicated from COVID-19 standpoint, she remains on room air will order CRP, ferritin, LDH if she gets hypoxic, please call me, will initiate steroids and remdesivir Miky Oro MD, FACP, [facility] O: [phone] F: [phone]
[2021-11-05] MEDS: HYDROcodone/ACETAMINOPHEN 5-325 MG TAB PO PRN (16:47)
[2021-11-05] MEDS: DEXAMETHASONE 2 MG TAB PO SCH (17:20)
[2021-11-06] MEDS: IBUPROFEN 600 MG TAB PO SCH ×3 (00:23→23:48)
[2021-11-06] MEDS: GENTAMICIN/NS 100 MG/100 ML 100 MG/100 ML BAG IV SCH (05:22)
[2021-11-06] MEDS: AMPICILLIN/NS 2 GM/100 ML 2 GM/100 ML BAG IV SCH ×2 (06:13→18:22)
[2021-11-06] MEDS: FERROUS SULFATE 325 MG TAB PO SCH (09:51)
[2021-11-06] MEDS: DEXAMETHASONE 2 MG TAB PO SCH (09:51)
[2021-11-06] MEDS: PRENATAL VIT27-FE FUMARATE-FOLIC ACID VIT TAB PO SCH (09:52)
[2021-11-06 12:58] LABS: C-Reactive Protein 7.4 mg/dL (0.00-1.30)
--- NOTE | 2021-11-06 13:13 | Progress Note ---
Assessment and Plan A: S/P + covid with mesfin pneu P: Continue routine pp orders Continue 02 per n/c ID to continue following D/C home when stable and cleared by ID Subjective - Subjective Date of service: 11/06/21 Principal diagnosis: day 3 S/P Patient reports: appetite normal, voiding normally, pain well controlled, flatus, ambulating normally, other (02 @ 2L PER N/C ) : doing well, bottle feeding Objective - Vital Signs Latest vital signs: Vital Signs Temp Pulse Resp BP BP Pulse Ox Pulse Ox 11/06/21 12:00 98.3 F 101/59 11/06/21 07:24 98.3 F 20 135/66 11/06/21 01:45 98.4 F 58 L 20 123/74 96 11/06/21 00:23 18 11/05/21 20:09 97 11/05/21 16:09 98.6 F 64 20 141/80 97 Intake and Output 11/05/21 11/06/21 11/06/21 22:59 06:59 14:59 Intake Total 490 270 Balance 490 270 Intake: IV 250 150 AMPICILLIN/NS 2 GM/100 ML 100 100 2 gm In 100 ml @ 100 mls /hr IV Q6H [facility] Rx#: [id number] CLEOCIN 900 MG/50 mL 900 50 50 mg In 50 ml @ 100 mls/hr IV Q8H [facility] Rx#:[id number] GENTAMICIN/NS 100 MG/100 100 ML 100 mg In 100 ml @ 200 mls/hr IV Q8H [facility] Rx#: [id number] Oral 240 Intake, Free Water 120 Other: Total, Intake Amount 240 # Voids Void 1 1 1 - Exam Breasts: Present: normal Lungs: Present: Clear to auscultation, Normal air movement Abdomen: Present: normal appearance, soft, normal bowel sounds Vulva: both: normal Uterus: Present: normal, firm, fundal height below umbilicus Extremities: Present: normal - Labs Labs: Abnormal lab results 11/06/21 Range/Units 12:08 Lactate Dehydrogenase 307 H (91-180) units/L C-Reactive Protein 7.40 H (0.00-1.30) mg/dL
[2021-11-06] MEDS ORDERED: REMDESIVIR 200 MG in SODIUM CHLORIDE 0.9% 250ML 250 ML IV ONE (13:40)
--- NOTE | 2021-11-06 13:44 | Progress Note ---
Assessment and Plan Cultures: SARS CoV2 PCR: Positive Syphilis IgG: Nonreactive A/P: 21-year-old female with 37 weeks was admitted to the hospital on 11/02/2021 with concerns for decreased movement. On 11/03/2021, she underwent spontaneous vaginal delivery. Patient started developing fever and chills, showed evidence of pneumonia on chest x-ray. She tested positive for COVID-19: #Bilateral pneumonia: Secondary to COVID-19. Unvaccinated. CRP 7.4, Ferritin 79.1, LDH 307. #Acute hypoxic respiratory failure: On nasal cannula oxygen. # status Recs: -Due to hypoxia, started Decadron 6 mg daily for 10 days -IV Remdesivir added -Get daily ambulatory saturations, if she clears, okay for discharge, does not need to remain inpatient to complete full remdesivir course -d-dimer in AM Miky Oro MD, FACP, [facility] O: [phone] F: [phone] Subjective Date of service: 11/06/21 Principal diagnosis: day 3 S/P Interval history: Afebrile but complaining of shortness of breath and was started on nasal cannula oxygen. Objective - Exam Narrative Exam: Physical Exam: deferred to minimize transmission risk reviewed in chart - Constitutional Vitals: Vital Signs Temp Pulse Resp BP Pulse Ox 98.3 F 58 L 20 101/59 96 11/06/21 12:00 11/06/21 01:45 11/06/21 07:24 11/06/21 12:00 11/06/21 01:45 Temperature -Last 24 Hours Temperature 98.3 F Temperature 98.3 F Temperature 98.4 F Temperature 98.6 F - Labs CBC & Chem 7: 11/04/21 15:42 11/04/21 15:42 Labs: Abnormal lab results 11/06/21 Range/Units 12:08 Lactate Dehydrogenase 307 H (91-180) units/L C-Reactive Protein 7.40 H (0.00-1.30) mg/dL
[2021-11-06] MEDS ORDERED: DEXAMETHASONE 4 MG TAB PO SCH (14:00)
[2021-11-06 14:43] LABS: Alanine Aminotransferase 22 units/L (7-56); Albumin 3.3 g/dL (3.9-5); Blood Urea Nitrogen 9 mg/dL (7-17); Calcium 8.4 mg/dL (8.4-10.2); Hemolysis Index 10
[2021-11-06 14:46] LABS: BUN/Creatinine Ratio 15
[2021-11-06] MEDS ORDERED: SODIUM CHLORIDE 0.9% 50 ML IVPB IV SCH (21:00)
[2021-11-07] MEDS: IBUPROFEN 600 MG TAB PO SCH (06:12)
[2021-11-07 06:51] LABS: Alanine Aminotransferase 23 units/L (7-56); Albumin 3.1 g/dL (3.9-5); Blood Urea Nitrogen 10 mg/dL (7-17); Calcium 8.4 mg/dL (8.4-10.2); Hemolysis Index 4
[2021-11-07 06:54] LABS: BUN/Creatinine Ratio 20
--- NOTE | 2021-11-07 09:23 | Progress Note ---
Assessment and Plan A: PP Day #4 +Covid Bilateral Pneumonia P: Follow Routine Orders Decadron 6mg PO x 10 days (complete) Follow Up with ID in One Week Follow Up with OB in 2 weeks February D/C Home today per Dr. Lam Subjective - Subjective Date of service: 11/07/21 Principal diagnosis: day 3 S/P Patient reports: appetite normal, voiding normally, pain well controlled, flatus, ambulating normally, other (Denies SOB, chest pain, chills, and fevers) : doing well, bottle feeding Objective - Vital Signs Latest vital signs: Vital Signs Temp Pulse Resp BP BP Pulse Ox Pulse Ox 11/07/21 07:50 97.8 F 57 L 18 111/75 94 11/07/21 00:38 98.2 F 51 L 20 142/85 94 11/06/21 23:48 18 11/06/21 20:00 96 96 11/06/21 12:00 98.3 F 101/59 Intake and Output 11/06/21 11/07/21 11/07/21 22:59 06:59 14:59 Intake Total 240 120 120 Balance 240 120 120 Intake: Oral 240 120 120 Other: Total, Intake Amount 240 120 120 # Voids Void 1 1 1 - Exam Breasts: Present: normal Cardiovascular: Present: Regular rate Lungs: Present: Clear to auscultation, Normal air movement Abdomen: Present: normal appearance, soft Uterus: Present: normal, firm, fundal height below umbilicus Extremities: Present: normal - Labs Labs: Abnormal lab results 11/06/21 11/06/21 11/07/21 Range/Units 12:08 14:06 05:57 D-Dimer (0-234) ng/mlDDU Potassium 2.9 L* 2.8 L* (3.6-5.0) mmol/L Chloride 96.4 L (98-107) mmol/L Carbon Dioxide 31 H (22-30) mmol/L Creatinine 0.5 L (0.6-1.2) mg/dL Glucose 113 H (65-100) mg/dL AST 57 H 49 H (5-40) units/L Alkaline Phosphatase 144 H (35-129) units/L Lactate Dehydrogenase 307 H (91-180) units/L C-Reactive Protein 7.40 H (0.00-1.30) mg/dL Total Protein 5.4 L (6.3-8.2) g/dL Albumin 3.3 L 3.1 L (3.9-5) g/dL 11/07/21 Range/Units 05:57 D-Dimer 571.53 H (0-234) ng/mlDDU Potassium (3.6-5.0) mmol/L Chloride (98-107) mmol/L Carbon Dioxide (22-30) mmol/L Creatinine (0.6-1.2) mg/dL Glucose (65-100) mg/dL AST (5-40) units/L Alkaline Phosphatase (35-129) units/L Lactate Dehydrogenase (91-180) units/L C-Reactive Protein (0.00-1.30) mg/dL Total Protein (6.3-8.2) g/dL Albumin (3.9-5) g/dL
--- NOTE | 2021-11-07 09:32 | Discharge Summary ---
Providers - Providers Date of Admission: 11/02/21 02:26 Date of discharge: 11/07/21 Attending physician: MICHELLE RAJAN 11/04/21 13:40 Consult to Physician [CONS] Routine Comment: Consulting Provider: SANTIAGO MO Physician Instructions: Reason For Exam: Coronavirus, fever, cough, pneumonia 11/04/21 17:14 Consult to Physician [CONS] Urgent Comment: Consulting Provider: SANTIAGO MO Physician Instructions: Reason For Exam: + coronavirus, cough, pneumonia, fever Primary care physician: SARAH ALMARAZ MD Hospitalization Reason for admission: induction of labor Delivery: Episiotomy: none Laceration: none Other procedures: none complications: none Discharge diagnosis: IUP at term delivered [place] baby: female Condition at discharge: Good Disposition: 01 HOME / SELF CARE / HOMELESS Plan - Discharge Medications Prescriptions: Ibuprofen [Motrin] 600 mg PO Q8H PRN #60 tablet PRN Reason: Pain oxyCODONE /ACETAMINOPHEN [Percocet 5/325] 1 tab PO Q6HR PRN #20 tablet PRN Reason: Pain - Provider Discharge Summary Activity: routine, no sex for 6 weeks, no heavy lifting 4 weeks, no strenuous exercise Diet: routine Instructions: routine Additional instructions: [] Smoking cessation referral if applicable(refer to patient education folder for contact #) [] Refer to [facility] Booklet Call your doctor immediately for: * Fever > 100.5 * Heavy vaginal bleeding ( >1 pad per hour) * Severe persistent headache * Shortness of breath * Reddened, hot, painful area to leg or breast * Drainage or odor from incision. * Keep incision clean and dry at all times and follow doctor's instructions regarding bathing/showering - Follow up plan Follow up: MICHLELE RAJAN MD [Staff Physician] - 14 Days
[2021-11-07] MEDS ORDERED: POTASSIUM CHLORIDE ER 20 MEQ TAB PO SCH (10:00)
[2021-11-07] MEDS ORDERED: DEXAMETHASONE 2 MG TAB PO SCH (10:00)
[2021-11-07 13:58] VITALS: BP 103/65
[2021-11-07] MEDS ORDERED: REMDESIVIR 100 MG in SODIUM CHLORIDE 0.9% 250ML 250 ML IV SCH (21:00)
== END 2021-11-07 14:05 | disposition home or self-care (01) | DRG 805 ==
LOC: TRG 17:08 → APU 17:11 → TRG 11-02 02:26 → LD 11-02 02:26 → OB 11-03 15:24
PROVIDERS: ADMIT Obstetrics & Gynecology; ATTEND Obstetrics & Gynecology
PROC: 10E0XZZ Delivery of Products of Conception, External Approach (ICD-10-PCS; principal; 2021-11-03)
PROC: 3E0R3BZ Introduction of Anesthetic Agent into Spinal Canal, Percutaneous Approach (ICD-10-PCS; 2021-11-03)
PROC: 00HU33Z Insertion of Infusion Device into Spinal Canal, Percutaneous Approach (ICD-10-PCS; 2021-11-03)
PROC: 3E0234Z Introduction of Serum, Toxoid and Vaccine into Muscle, Percutaneous Approach (ICD-10-PCS; 2021-11-04)
DX: O36.5930 Maternal care for other known or suspected poor fetal growth, third trimester, not applicable or unspecified (principal); U07.1 COVID-19; Z37.0 Single live birth; J12.82 Pneumonia due to coronavirus disease 2019; J96.01 Acute respiratory failure with hypoxia; O41.03X0 Oligohydramnios, third trimester, not applicable or unspecified; O98.52 Other viral diseases complicating childbirth; Z3A.37 37 weeks gestation of pregnancy; O76 Abnormality in fetal heart rate and rhythm complicating labor and delivery; O90.81 Anemia of the puerperium; O99.52 Diseases of the respiratory system complicating childbirth; Z23 Encounter for immunization
CPT/HCPCS: 36415; 59025; 71045; 76816; 76819; 80053; 81001; 82728; 83615; 84112; 85014; 85018; 85025; 85027; 85379; 86140; 86592; 86850; 86900; 86901; 88307; 90715; G0378; J3490; J7121; J7502; J0290; J1100; J1580; J2210; J2405; J2590; J2765; J3010; J7050; J7120; J8540; U0003